=== PATIENT | male | born 1990 | race Caucasian/White ===

== ENCOUNTER 2019-05-08 12:28 | Emergency (ER) | payer SELFPAY ==
[2019-05-08] MEDS ORDERED: Ketorolac INJ* 30 MG/ML 1 ML VIAL IV ONE (13:07)
--- NOTE | 2019-05-08 13:07 | ED ---
Upper Extremity Pain - HPI Summary HPI Summary: Patient is a 29 y/o M presenting to the ED for a chief complaint of left hand and wrist edema and pain that began when waking up on 05/07/19. Patient now also has left elbow edema. He notes numbness and paresthesia in the left hand and wrist. He also reports neck stiffness which he attributes to a recent bus ride from [place] to [facility]. Patient denies fever. Patient believes he may have been bitten by a spider. He took Keflex he had at his house. Patient denies any aggravating or alleviating factors. PMHx is significant for left wrist fracture and migraines. He takes Lluvia for allergies, but denies taking any other medications. SHx is significant for IV drug use, which he last used one month ago. - History of Current Complaint Chief Complaint: EDExtremityUpper Stated Complaint: HAND AND ARM INJURY Time Seen by Provider: 05/08/19 12:47 Hx Obtained From: Patient Mechanism Of Injury: Other - None Onset/Duration: Atraumatic, Still Present Timing: Constant Severity Initially: Moderate Severity Currently: Moderate Pain Location: Elbow - Left, Wrist - Left, Hand - Left Character: Unable to Describe Aggravating Factor(s): Nothing Alleviating Factor(s): Nothing Associated Signs & Symptoms: Positive: Swelling, Redness, Numbness/Tingling, Other - Positive neck stiffness. Negative: Fever - Allergies/Home Medications Allergies/Adverse Reactions: Allergies Allergy/AdvReac Type Severity Reaction Status Date / Time SEASONAL Allergy Congestion Uncoded 05/08/19 12:37 Home Medications: Home Medications Fexofenadine (NF) [Lluvia 180 (NF)] 180 mg PO DAILY 05/08/19 [History Confirmed 05/08/19] PMH/Surg Hx/FS Hx/Imm Hx Previously Healthy: Yes Endocrine/Hematology History: Denies: Hx Diabetes, Hx Thyroid Disease Cardiovascular History: Denies: Hx Congestive Heart Failure, Hx Hypertension Respiratory History: Denies: Hx Asthma, Hx Chronic Obstructive Pulmonary Disease (COPD) GI History: Denies: Hx Ulcer History: Denies: Hx Dialysis, Hx Renal Disease Musculoskeletal History: Reports: Hx of Fracture(s) - Left wrist Sensory History: Denies: Hx Legally Blind, Hx Deafness Opthamlomology History: Denies: Hx Legally Blind EENT History: Denies: Hx Deafness Neurological History: Reports: Hx Migraine - Surgical History Surgical History: Yes Surgery Procedure, Year, and Place: repair of jaw fx Infectious Disease History: No Infectious Disease History: Denies: Hx Clostridium Difficile, Hx Hepatitis, Hx Human Immunodeficiency Virus (HIV), Hx of Known/Suspected MRSA, Hx Shingles, Hx Tuberculosis, History Other Infectious Disease, Traveled Outside the [place] in Last 30 Days - Family History Known Family History: Negative: Diabetes - Social History Occupation: Employed Full-time Lives: With Family Alcohol Use: Rare Hx Substance Use: Yes Substance Use Comment - Amount & Last Used: IV drug use Hx Tobacco Use: Yes Smoking Status (MU): Heavy Every Day Tobacco Smoker Type: Smokeless Tobacco Amount Used/How Often: 1 CAN EVERY 1 1/2 DAYS Length of Time of Smoking/Using Tobacco: 8 yrs Have You Smoked in the Last Year: Yes Review of Systems Negative: Fever Positive: Myalgia - Left wrist, left hand, left elbow, Edema - Left wrist, left hand, left elbow, Other - Positive neck stiffness Positive: Paresthesia - Left hand and wrist, Numbness - Left hand and wrist All Other Systems Reviewed And Are Negative: Yes Physical Exam - Summary Physical Exam Summary: Constitutional: Well-developed, Well-nourished, Alert. (-) Distressed Skin: Warm, Dry HENT: Normocephalic; Atraumatic Eyes: Conjunctiva normal Neck: Musculoskeletal ROM normal neck. (-) JVD, (-) Stridor, (-) Nuchal rigidity Cardio: Rhythm regular, rate normal, Heart sounds normal; Intact distal pulses; Radial pulses are 2+ and symmetric. (-) Murmur Pulmonary/Chest wall: Effort normal. (-) Respiratory distress, (-) Wheezes, (-) Rales Abd: Soft, (-) tenderness, (-) Distension, (-) Guarding, (-) Rebound Musculoskeletal: Diffuse swelling of the left wrist and hand in the dorsal aspect with erythema and fluctuance, induration and edema to the lateral elbow, track pena to the left forearm. Lymph: (-) Cervical adenopathy Neuro: Alert, Oriented x3 Psych: Mood and affect Normal Triage Information Reviewed: Yes Vital Signs On Initial Exam: Initial Vitals Temp Pulse Resp BP Pulse Ox 99.9 F 103 16 104/72 95 05/08/19 12:34 05/08/19 12:34 05/08/19 12:34 05/08/19 12:34 05/08/19 12:34 Vital Signs Reviewed: Yes Procedures - Sedation Patient Received Moderate/Deep Sedation with Procedure: No - Incision and Drainage Left Hand Dorsal Site: Dorsal left hand - significant amount of purulent drainage Anesthesia: Lidocaine - 3 cc of l% lidocaine Instrument(s): Scalpel Packing: Drain - Copious amounts of purulent drainage Diagnostics - Vital Signs Vital Signs Temp Pulse Resp BP Pulse Ox 05/08/19 12:34 99.9 F 103 16 104/72 95 - Laboratory Result Diagrams: 05/08/19 13:34 05/08/19 13:34 Lab Statement: Any lab studies that have been ordered have been reviewed, and results considered in the medical decision making process. - CT Upper Extremity CT CT Interpretation Completed By: Radiologist Summary of CT Findings: Upper Extremity CT IMPRESSION: 1. FINDINGS MOST CONSISTENT WITH CELLULITIS IN THE LEFT FOREARM, WRIST AND HAND. IN ADDITION THERE ARE 2 FOCAL FLUID COLLECTIONS ALONG THE DORSAL ASPECT OF THE HAND AND DORSAL ASPECT OF THE FOURTH FINGER MOST CONSISTENT WITH ABSCESSES. 2. THERE IS A SMALL AMOUNT OF GAS IN THE ANTECUBITAL FOSSA RECOMMEND CLINICAL CORRELATION. Reviewed by Dr. Lagos. Re-Evaluation - Re-Evaluation First Eval Re-Evaluation Time: 16:10 Change: Unchanged Comment: CT scan shows abscess of the hand, able to drain significant amount of pus from the dorsolateral the hand. Also showed small area of gas in the antecubital fossa which is secondary to IV drug use and correlated on exam with a tract osmar. Post I&D ultrasound of soft tissue did not show any large resultant abscess. Discussed with patient staying for IV antibiotics, patient states he wants to leave secondary to having to get his daughter. Patient is AAOx4 with clear sensorium, no signs of intoxication, no SI/HI, a normal gait and normal speech pattern and capacity to refuse care. I explained to the patient the risks of leaving AMA to include , disability, and loss of function. I had an extensive conversation with the patient regarding return precautions and encouraged them to return sooner for any worsening condition, new symptoms or ANY other concerns. Course/Dx - Course Course Of Treatment: 29-year-old male with a history of IV drug abuse presents with right hand and arm swelling. Concern for multiple abscesses given history of drug use, we'll check a CT, given antibiotics - Diagnoses Provider Diagnoses: Hand abscess Discharge ED - Sign-Out/Discharge Documenting (check all that apply): Patient Departure - Discharge - Discharge Plan Condition: Stable Disposition: HOME Prescriptions: Clindamycin Cap(NF) [Clindamycin Cap 300 mg Cap(NF)] 300 mg PO Q6H 7 Days #28 cap Patient Education Materials: Abscess (ED) Referrals: [facility] [Outside] Additional Instructions: You were seen in the emergency department for an abscess. Your CT scan showed 2 small abscesses on your hand. We will able to drain one of the abscesses. Please take clindamycin 4 times a day. Please return for worsening pain, fevers , drainage or redness of the area. Please follow up with your primary care doctor in next 2-3 days. It was a pleasure taking care of you today. - Billing Disposition and Condition Condition: STABLE Disposition: Home - Attestation Statements Document Initiated by Anna: Yes Documenting Scribe: Zulma Rolle Provider For Whom Anna is Documenting (Include Credential): Damon Lagos MD Scribe Attestation: I, Zulma Rolle, scribed for Damon Lagos MD on 05/08/19 at 1614. Scribe Documentation Reviewed: Yes Provider Attestation: The documentation as recorded by the Zulma dia accurately reflects the service I personally performed and the decisions made by me, Damon Lagos MD Status of Scribe Document: Viewed
[2019-05-08] MEDS ORDERED: Clindamycin 600 MG/D5W BAG(*) 600 MG/50 ML BAG IV ONE (13:09)
[2019-05-08 13:43] LABS: ABS Lymphocytes 1.6 10^3/ul (1.0-4.8); ABS Monocytes 1.3 10^3/ul (0-0.8); ABS Neutrophils 7.9 10^3/ul (1.5-7.7); Eosinophil % 0.4 %; Hematocrit 36 % (42-52); Hemoglobin 12.3 g/dL (14.0-18.0); Lymphocyte % 14.9 %; Mean Corpuscular HGB Conc 35 g/dL (31-36); Mean Corpuscular Hemoglobin 29 pg (27-31); Mean Corpuscular Volume 83 fL (80-94); Mean Platelet Volume 7.3 fL (7.4-10.4); Platelet Count 249 10^3/uL (150-450); Red Blood Count 4.29 10^6 /uL (4.18-5.48); Red Cell Distribution Width 14 % (10-15); White Blood Count 10.9 10^3/uL (3.5-10.8)
[2019-05-08 14:02] LABS: Albumin 3.5 g/dL (3.2-5.2); Albumin/Globulin Ratio 1.3 (1-3); BUN/Creatinine Ratio 20.3 (8-20); EGFR African American 152.4 (>60); EGFR Non-African American 125.9 (>60); Globulin 2.7 g/dL (2-4); Total Bilirubin 0.6 mg/dL (0.2-1.0); Total Protein 6.2 g/dL (6.4-8.9)
[2019-05-08] MEDS ORDERED: Iohexol 300* (CONTRAST) 10 ML SDV IV ONE (14:12)
[2019-05-08 14:46] LABS: Calcium 8.7 mg/dL (8.6-10.3); Potassium 4.2 mmol/L (3.5-5.0)
[2019-05-08 14:48] LABS: Erythrocyte Sed Rate 29 mm/Hr (0-14)
[2019-05-08 16:46] VITALS: BP 115/55
== END 2019-05-08 16:46 | disposition left against medical advice (07) ==
LOC: ED 12:28
DX: L02.512 Cutaneous abscess of left hand (principal); F17.200 Nicotine dependence, unspecified, uncomplicated; Z79.899 Other long term (current) drug therapy
CPT/HCPCS: 36415; 80053; 85025; 85652; 86141; 87040; 87070; 87205; 87640; 87641; 96365; 96375; 99282; J1885; Q9967